=== PATIENT | female | born 1975 | race Caucasian/White ===

== ENCOUNTER 2023-06-03 16:17 | Emergency (ER) | payer SELFPAY ==
[2023-06-03] MEDS ORDERED: Ondansetron 4 MG/2 ML SDV IVPUSH ONE (16:44)
[2023-06-03] MEDS ORDERED: Lidocaine 4% 1 each Patch TOP STA (16:48)
== END 2023-06-03 18:43 | disposition home or self-care (01) ==
LOC: MW.ED 16:17
DX: M25.421 Effusion, right elbow (principal); K21.9 Gastro-esophageal reflux disease without esophagitis; Z88.0 Allergy status to penicillin; Z79.899 Other long term (current) drug therapy; W00.0XXA Fall on same level due to ice and snow, initial encounter
CPT/HCPCS: 73080; 96374; 99284; A9270; J2405